=== PATIENT | female | born 1995 | race African-American/Black ===

== ENCOUNTER 2021-05-14 18:59 | Emergency (ER) | payer SELFPAY ==
[~2021-05-14] VITALS: Ht 167.6 cm; Wt 91.2 kg
[2021-05-14 20:15] VITALS: BP 132/65
== END 2021-05-14 20:35 | disposition home or self-care (01) ==
LOC: ER 19:12
DX: O20.9 Hemorrhage in early pregnancy, unspecified (principal)
CPT/HCPCS: 36415; 84702; 99284